=== PATIENT | female | born 1975 | race Caucasian/White ===

== ENCOUNTER 2017-03-03 19:54 | Emergency (ER) | payer OTHER ==
[~2017-03-03] VITALS: Ht 162.6 cm; Wt 76.6 kg
[~2017-03-03 19:54] MED LIST: CYAN100T PO; MULT-506 PO
[2017-03-03 19:58] VITALS: Ht 162.6 cm; Wt 76.6 kg
[2017-03-03] MEDS ORDERED: FERR1TAB13 PO (20:03)
--- NOTE | 2017-03-03 20:39 | DIAGNOSTIC IMAGING REPORT ---
LEFT KNEE 3 VIEWS CLINICAL HISTORY: L knee pain pain COMPARISON: None. DISCUSSION: The bones and joint spaces appear intact. There is no evidence of fracture, dislocation or bony disease. There is no evidence for soft tissue swelling. IMPRESSION: Negative study. Electronically signed by: Wilfrido Singer M.D. 03/03/2017 8:37 PM Dictated Date/Time: 03/03/2017 8:37 PM
[2017-03-03 21:12] VITALS: BP 155/89; PULSE 71; TEMP 36.7; O2SAT 100
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
[2017-09-03] MEDS ORDERED: CYAN100020 PO (22:52)
== END 2017-03-03 21:13 | disposition home or self-care (01) ==
LOC: C.EDB 19:55 → C.EDD 21:13
DX: S80.02XA Contusion of left knee, initial encounter (principal); W22.8XXA Striking against or struck by other objects, initial encounter; Z82.49 Family history of ischemic heart disease and other diseases of the circulatory system

== ENCOUNTER 2017-03-15 13:42 | Emergency (ER) | payer OTHER ==
[~2017-03-15] VITALS: Ht 162.6 cm; Wt 76.5 kg
[~2017-03-15 13:42] MED LIST changes: -CYAN100T PO; +FERR1TAB13 PO; -MULT-506 PO
[2017-03-15 13:47] VITALS: Ht 162.6 cm; Wt 76.5 kg
[2017-03-15] MEDS ORDERED: SODIUM CHLORIDE 0.9% 1000ML 1,000 ML IV STA (14:04)
[2017-03-15] MEDS ORDERED: LORAZEPAM 0.5 MG TAB SL STA (14:04)
--- NOTE | 2017-03-15 14:29 | DIAGNOSTIC IMAGING REPORT ---
CHEST ONE VIEW PORTABLE CLINICAL HISTORY: Chest Pain pain COMPARISON STUDY: No previous studies for comparison. FINDINGS: The bones soft tissues and hemidiaphragms are normal. The cardiomediastinal silhouette is normal. The lungs are clear. The pulmonary vasculature is normal. IMPRESSION: Negative chest. Electronically signed by: Wilfrido Singer M.D. 03/15/2017 2:27 PM Dictated Date/Time: 03/15/2017 2:27 PM
[2017-03-15 14:56] LABS: BASO % 1.4 %; BASO ABS # 0.12 K/uL (0-0.2); COMPLETE YES; EOS % 4.5 %; HEMATOCRIT 41.7 % (37-47); IG% 0.2 %; LYMPH % 29.4 %; MEAN CORPUSCULAR HEMOGLOBIN 30.1 pg (25-34); MEAN CORPUSCULAR HGB CONC 33.1 g/dl (32-36); MEAN PLATELET VOLUME 10.2 fL (7.4-10.4); MONO % 6.5 %; PLATELET COUNT 336 K/uL (130-400); RED BLOOD COUNT 4.58 M/uL (4.2-5.4); WHITE BLOOD COUNT 8.51 K/uL (4.8-10.8)
[2017-03-15 15:14] LABS: BLOOD UREA NITROGEN 16 mg/dl (7-18); BUN/CREATININE RATIO 25.1 (10-20); CALCIUM 8.1 mg/dl (8.5-10.1); CARBON DIOXIDE 28 mmol/L (21-32); CHLORIDE 110 mmol/L (98-107); CREATININE 0.63 mg/dl (0.60-1.20); GLUCOSE 95 mg/dl (70-99); POTASSIUM 4.5 mmol/L (3.5-5.1); SODIUM 144 mmol/L (136-145)
[2017-03-15 15:47] VITALS: BP 121/75; PULSE 62; TEMP 36.8; O2SAT 99
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
[2017-09-03] MEDS ORDERED: CYAN100020 PO (22:52)
== END 2017-03-15 16:15 | disposition home or self-care (01) ==
LOC: C.EDB 13:44 → C.EDA 16:15
DX: F41.9 Anxiety disorder, unspecified (principal); K82.9 Disease of gallbladder, unspecified; Z86.018 Personal history of other benign neoplasm; Z98.890 Other specified postprocedural states; Z79.899 Other long term (current) drug therapy; Z80.9 Family history of malignant neoplasm, unspecified; Z83.79 Family history of other diseases of the digestive system; Z82.49 Family history of ischemic heart disease and other diseases of the circulatory system; Z84.1 Family history of disorders of kidney and ureter

== ENCOUNTER 2017-04-30 01:00 | Emergency (ER) | payer OTHER ==
[~2017-04-30] VITALS: Ht 160 cm; Wt 75.1 kg
[2017-04-30 01:04] VITALS: TEMP 36.7; Ht 160 cm; Wt 75.1 kg
[2017-04-30] MEDS ORDERED: KETOROLAC TROMETHAMINE 60 MG/2 ML VIAL IM STA (01:39)
[2017-04-30] MEDS ORDERED: MULT-922 PO (02:00)
[2017-04-30] MEDS ORDERED: IBUP-103 PO (02:00)
[2017-04-30] MEDS ORDERED: MELO15TA10 PO (02:00)
[2017-04-30 03:20] VITALS: BP 147/82; PULSE 65; O2SAT 97
--- NOTE | 2017-04-30 06:36 | EMERGENCY ROOM VISIT NOTE ---
History First contact with patient: 01:20 Chief Complaint: KNEEPAIN Stated Complaint: LEFT KNEE PAIN History of Present Illness The patient is a 41 year old female who presents to the Emergency Room with complaints of left knee pain worsening over the past one day. The patient has a history of knee contusion about 2 months ago, and she has been following with orthopedics for this. She is undergoing physical therapy for this knee. She states that she generally has pain after physical therapy, but this feels worse than normal. She has difficulty with flexion and extension comfortably. She has not had significant improvement with [id number] analgesics. No fever or chills. No numbness. Her pain is primarily above and to the left lateral side of the patella. She rates her discomfort a 5/10 Review of Systems More than 10 systems were reviewed and otherwise negative with the exception of history of present illness. Past Medical/Surgical History Medical Problems: (1) Bronchitis (2) Sciatica Surgical Problems: (1) Gallbladder problem (2) Hx of tonsillectomy (3) Uterine fibroid Family History Cancer Gallbladder disease Heart disease Hypertension Kidney disease Lung disease Social History Smoking Status: Never Smoker Alcohol Use: other Drug Use: none Marital Status: single Occupation Status: employed Current/Historical Medications Scheduled Ferrous Sulfate ( Ferrous Sulfate), 325 MG PO DAILY Multiple Vitamins W/ Minerals (Multivitamin Adults), 1 TAB PO DAILY Scheduled PRN Ibuprofen Tab (Advil), 200-600 MG PO Q4H PRN for Pain Meloxicam (Mobic), 15 MG PO DAILY PRN for Pain Allergies Coded Allergies: No Known Allergies (Unverified , 04/30/17) Physical Exam Vital Signs Date Time Temp Pulse Resp B/P (MAP) Pulse Ox O2 Delivery O2 Flow Rate FiO2 04/30/17 03:20 65 147/82 97 04/30/17 01:04 36.7 74 20 137/95 98 Room Air Pain Rating (0-10): 2.0 Physical Exam VITALS: Vitals are noted on the nurse's note and reviewed by myself. Vital signs stable. GENERAL: Well-developed, well-nourished, white female, who is in no acute distress and resting comfortably. Patient is cooperative with the examination. HEAD: Normocephalic atraumatic. HEART: Regular rate and rhythm without murmurs gallops or rubs. LUNGS: Clear to auscultation bilaterally without wheezes, rales or rhonchi. No retractions or accessory muscle use. MUSCULOSKELETAL: No muscle atrophy, erythema, or edema noted. Left knee is diffusely tender on palpation. This significantly limits examination. No evidence of cellulitis. No palpable cords. NEURO: Patient was alert and oriented to person place and time. CN II through XII grossly intact. Medical Decision & Procedures Medications Administered Medications (Trade) Dose Ordered Sig/Clifton Route Start Time Stop Time Status Last Admin Dose Admin Ketorolac Tromethamine (Toradol Inj) 60 mg NOW STAT IM 04/30/17 01:39 04/30/17 01:40 DC 04/30/17 01:44 60 MG ED Course Physical exam and history were performed. Nursing notes and EMR were reviewed. Patient appears to have left knee pain for the past one day. The patient was given 60 mg IM Toradol. X-ray was obtained and reviewed by myself and my attending. X-ray does not appear to show acute fracture, dislocation, or bony of the malleoli when compared x-ray 2 months ago. Overall the patient's symptoms favored a sprain/strain or overuse episode. The patient was offered a splint, but she states that she has one at home. She will be given crutches and instructions to follow with her orthopedist for further care and management. The patient was pleased with this plan voiced understanding. She rated her discomfort a 2/10 at the time of departure. The chart was completed utilizing [email or web address] Speech Voice Recognition Software. Grammatical errors, random word insertions, pronoun errors, and incomplete sentences are an occasional consequence of this system due to software limitations, ambient noise, and hardware issues. Any formal questions or concerns about the content, text, or information contained within the body of this dictation should be directly addressed to the provider for clarification. . Medical Decision Differential diagnosis includes, but is not limited to: Sprain, strain, fracture , dislocation, subluxation, contusion, and others Impression Primary Impression: Left knee pain Departure Information Dispostion Home / Self-Care Condition GOOD Forms HOME CARE DOCUMENTATION FORM, IMPORTANT VISIT INFORMATION Patient Instructions My [facility] Additional Instructions You were seen and evaluated today on an emergency basis only. This is not a substitute for, or an effort to provide, complete comprehensive medical care. It is not possible to recognize and treat all injuries or illnesses in a single emergency department visit. For this reason it is recommended that you followup with your orthopedist for ongoing care and evaluation. Use your crutches and wear your splint for comfort Continue your at-home medications as prescribed You are welcome to return to the emergency department anytime with new, worsening, or concerning symptoms.
--- NOTE | 2017-04-30 06:47 | DIAGNOSTIC IMAGING REPORT ---
LEFT KNEE 3 VIEWS HISTORY: 41-year-old female presents with acute left knee pain status post recent injury. COMPARISON: Left knee radiographs 03/03/2017. TECHNIQUE: 3 views of the left knee FINDINGS: No acute fracture, dislocation or significant osteoarthritis. No large joint effusion or radiopaque foreign body. IMPRESSION: No acute fracture or dislocation. Electronically signed by: Lux rOellana 04/30/2017 6:45 AM Dictated Date/Time: 04/30/2017 6:43 AM
== END 2017-04-30 03:21 | disposition home or self-care (01) ==
LOC: C.EDB 01:01 → C.EDC 03:21
DX: M25.562 Pain in left knee (principal); Z80.9 Family history of malignant neoplasm, unspecified; Z82.49 Family history of ischemic heart disease and other diseases of the circulatory system; Z84.1 Family history of disorders of kidney and ureter; Z79.899 Other long term (current) drug therapy

== ENCOUNTER 2017-11-11 01:40 | Emergency (ER) | payer OTHER ==
[~2017-11-11] VITALS: Ht 162.6 cm; Wt 86.3 kg
[~2017-11-11 01:40] MED LIST changes: +CYAN100020 PO; +IBUP-103 PO; +MULT-922 PO
[2017-11-11 01:43] VITALS: Ht 162.6 cm; Wt 86.3 kg
[2017-11-11] MEDS ORDERED: KETOROLAC TROMETHAMINE 30 MG/ML VIAL IV STA (02:07)
[2017-11-11] MEDS ORDERED: SODIUM CHLORIDE 0.9% 1000ML 1,000 ML IV ONE (02:15)
[2017-11-11] MEDS ORDERED: ACETAMINOPHEN IV 1,000 MG in EMPTY BAG 0 ML IV ONE (02:15)
[2017-11-11] MEDS ORDERED: ACETAMINOPHEN 1000 MG/100 ML IV IV ONE (02:25)
[2017-11-11 02:31] LABS: BASO % 0.6 %; BASO ABS # 0.06 K/uL (0-0.2); EOS % 2.7 %; EOS ABS # 0.28 K/uL (0-0.5); HEMATOCRIT 37.2 % (37-47); HEMOGLOBIN 12.5 g/dL (12.0-16.0); IG# 0.03 K/uL (0.00-0.02); LYMPH % 26.9 %; LYMPH ABS # 2.81 K/uL (1.2-3.4); MEAN CELL VOLUME 89.4 fL (80-100); MEAN CORPUSCULAR HGB CONC 33.6 g/dl (32-36); MEAN PLATELET VOLUME 9.7 fL (7.4-10.4); MONO ABS # 0.73 K/uL (0.11-0.59); NEUT % 62.5 %; NEUT ABS # 6.53 K/uL (1.4-6.5); PLATELET COUNT 327 K/uL (130-400); RED CELL DISTRIBUTION WIDTH CV 13.4 % (11.5-14.5); RED CELL DISTRIBUTION WIDTH SD 43.4 fL (36.4-46.3); WHITE BLOOD COUNT 10.44 K/uL (4.8-10.8)
[2017-11-11 02:50] LABS: ALBUMIN 3.2 gm/dl (3.4-5.0); CALCIUM 8.7 mg/dl (8.5-10.1); CREATININE 0.64 mg/dl (0.60-1.20); POTASSIUM 3.7 mmol/L (3.5-5.1)
[2017-11-11 02:52] LABS: TOTAL PROTEIN 6.7 gm/dl (6.4-8.2)
[2017-11-11] MEDS ORDERED: SOAP SUDS ENEMA PR ONE (03:30)
[2017-11-11 04:42] VITALS: BP 112/73; PULSE 80; TEMP 36.7; O2SAT 98
--- NOTE | 2017-11-11 05:27 | EMERGENCY ROOM VISIT NOTE ---
History First contact with patient: 01:47 Chief Complaint: COUGH Stated Complaint: CHEST HURTS,COUGH X WK,LIGHT HEADED,SCAR TISSUE HU Nursing Triage Summary: cough and cold symptoms x 9 days. complains of pain in mid abdominal pain that radiates to her rlq. History of Present Illness The patient is a 42 year old female who presents to the Emergency Room with complaints of upper right-sided and left-sided abdominal pain that is worsening over the past several days. The patient is also complaining of cough and cold symptoms for the past 9 days. She states her abdominal discomfort has been chronic, and began in 2013 when she had her gallbladder removed. She believes that she has scar tissue in this area that is causing much of her discomfort. The patient has not had nausea or vomiting. No reported changes in using the bathroom. No fever or chills. She states that her cough has been persistent, and is improving. The patient is currently living in a homeless longterm at a local [facility]. She rates her overall discomfort a 5/10 and has not taken anything [id number] for her symptoms. Review of Systems More than 10 systems were reviewed and otherwise negative with the exception of history of present illness. Past Medical/Surgical History Medical Problems: (1) Bronchitis (2) Sciatica Surgical Problems: (1) Gallbladder problem (2) Hx of tonsillectomy (3) Uterine fibroid Family History Cancer Gallbladder disease Heart disease Hypertension Kidney disease Lung disease Social History Smoking Status: Never Smoker Alcohol Use: other Drug Use: none Marital Status: single Occupation Status: employed Current/Historical Medications No Active Prescriptions or Reported Meds Physical Exam Vital Signs Date Time Temp Pulse Resp B/P (MAP) Pulse Ox O2 Delivery O2 Flow Rate FiO2 11/11/17 04:42 36.7 80 20 112/73 98 Room Air 11/11/17 02:01 Room Air 11/11/17 01:43 37.0 96 20 131/83 98 Room Air Physical Exam VITALS: Vitals are noted on the nurse's note and reviewed by myself. Vital signs stable. GENERAL: Well-developed, well-nourished, white female, who is in no acute distress and resting comfortably. Patient is cooperative with the examination. NECK: Supple without nuchal rigidity. No lymphadenopathy. No thyromegaly. Cervical spine is nontender. HEART: Regular rate and rhythm without murmurs gallops or rubs. LUNGS: Clear to auscultation bilaterally without wheezes, rales or rhonchi. No retractions or accessory muscle use. ABDOMEN: Positive normal bowel sounds x 4. Soft, nontender, without masses or organomegaly. No guarding or rebound tenderness. MUSCULOSKELETAL: No muscle atrophy, erythema, or edema noted. Full range of motion without joint tenderness in all extremities. Medical Decision & Procedures Laboratory Results 11/11/17 02:23 Red Blood Count 4.16, Mean Corpuscular Volume 89.4, Mean Corpuscular Hemoglobin 30.0, Mean Corpuscular Hemoglobin Concent 33.6, Mean Platelet Volume 9.7, Neutrophils (%) (Auto) 62.5, Lymphocytes (%) (Auto) 26.9, Monocytes (%) (Auto) 7.0, Eosinophils (%) (Auto) 2.7, Basophils (%) (Auto) 0.6, Neutrophils # (Auto) 6.53, Lymphocytes # (Auto) 2.81, Monocytes # (Auto) 0.73, Eosinophils # (Auto) 0.28, Basophils # (Auto) 0.06 11/11/17 02:23 Test 11/11/17 02:23 White Blood Count 10.44 K/uL (4.8-10.8) Red Blood Count 4.16 M/uL (4.2-5.4) Hemoglobin 12.5 g/dL (12.0-16.0) Hematocrit 37.2 % (37-47) Mean Corpuscular Volume 89.4 fL (80-100) Mean Corpuscular Hemoglobin 30.0 pg (25-34) Mean Corpuscular Hemoglobin Concent 33.6 g/dl (32-36) Platelet Count 327 K/uL (130-400) Mean Platelet Volume 9.7 fL (7.4-10.4) Neutrophils (%) (Auto) 62.5 % Lymphocytes (%) (Auto) 26.9 % Monocytes (%) (Auto) 7.0 % Eosinophils (%) (Auto) 2.7 % Basophils (%) (Auto) 0.6 % Neutrophils # (Auto) 6.53 K/uL (1.4-6.5) Lymphocytes # (Auto) 2.81 K/uL (1.2-3.4) Monocytes # (Auto) 0.73 K/uL (0.11-0.59) Eosinophils # (Auto) 0.28 K/uL (0-0.5) Basophils # (Auto) 0.06 K/uL (0-0.2) RDW Standard Deviation 43.4 fL (36.4-46.3) RDW Coefficient of Variation 13.4 % (11.5-14.5) Immature Granulocyte % (Auto) 0.3 % Immature Granulocyte # (Auto) 0.03 K/uL (0.00-0.02) Anion Gap 3.0 mmol/L (3-11) Est Creatinine Clear Calc Drug Dose 124.3 ml/min Estimated GFR () 129.4 Estimated GFR (Non- 111.6 BUN/Creatinine Ratio 18.5 (10-20) Calcium Level 8.7 mg/dl (8.5-10.1) Total Bilirubin 0.1 mg/dl (0.2-1) Aspartate Amino Transf (AST/SGOT) 11 U/L (15-37) Alanine Aminotransferase (ALT/SGPT) 16 U/L (12-78) Alkaline Phosphatase 65 U/L (45-117) Total Protein 6.7 gm/dl (6.4-8.2) Albumin 3.2 gm/dl (3.4-5.0) Globulin 3.5 gm/dl (2.5-4.0) Albumin/Globulin Ratio 0.9 (0.9-2) Lipase 125 U/L (73-393) Medications Administered Medications (Trade) Dose Ordered Sig/Clifton Route Start Time Stop Time Status Last Admin Dose Admin Sodium Chloride 1,000 ml @ 999 mls/hr Q1H1M ONCE IV 11/11/17 02:15 11/11/17 03:15 DC 11/11/17 02:28 999 MLS/HR Ketorolac Tromethamine (Toradol Inj) 30 mg NOW STAT IV 11/11/17 02:07 11/11/17 02:11 DC 11/11/17 02:28 30 MG Acetaminophen 1000 mg/Empty Bag 100 ml @ 400 mls/hr NOW ONCE IV 11/11/17 02:15 11/11/17 02:29 DC 11/11/17 02:28 400 MLS/HR Miscellaneous (Soap Suds Enema) [address] 11/11/17 03:30 11/11/17 03:31 DC 11/11/17 03:36 1 ED Course Physical exam and history were performed. Nursing notes, EMR, and Medication List were personally reviewed. Patient appears to have reports of vague abdominal pain that has been worsening over the past few days. This is evidently chronic in nature for her, and she does have a history of cholecystectomy. IV access was established and labs were obtained. The patient was hydrated with normal saline and medicated as above. X-rays of the chest and abdomen were performed. The patient's blood work is as above and was reviewed. She does not have a significantly elevated white blood cell count, gross anemia, bandemia, or significant electrolyte imbalance. She has amylases are nondiagnostic. Her x- ray of the chest does not show an acute infiltrate, however there does appear to be significant stool burden in both the ascending and descending colon on plain films. I discussed options of care with the patient, as I suspect much of her abdominal discomfort is from stool. She did elect for an enema, and soapsuds enema was performed by staff. The patient had a moderate to large size movement after the enema, and the patient did report significant improvement of her abdominal discomfort. Overall the patient does appear well for discharge home. She was educated on conservative measures to help prevent further constipation. I do recommend that she follow with the surgeon if she feels that she has do recommend that she follow with her primary care physician for further care and management. She is otherwise went back to the ER with any new , worsening, or concerning symptoms. The chart was completed utilizing [employer] Speech Voice Recognition Software. Grammatical errors, random word insertions, pronoun errors, and incomplete sentences are an occasional consequence of this system due to software limitations, ambient noise, and hardware issues. Any formal questions or concerns about the content, text, or information contained within the body of this dictation should be directly addressed to the provider for clarification. . Medical Decision Differential diagnosis: Etiologies such as appendicitis, diverticulitis, PUD, biliary pathology, UTI, pancreatitis, obstruction, mesenteric ischemia, aortic pathology, infections, inflammatory bowel disease, renal colic, as well as others were entertained. Impression Primary Impression: Abdominal pain Additional Impression: Constipation Departure Information Dispostion Home / Self-Care Condition GOOD Prescriptions No Active Prescriptions or Reported Meds Forms HOME CARE DOCUMENTATION FORM, IMPORTANT VISIT INFORMATION Patient Instructions My [facility] Additional Instructions You were seen and evaluated today on an emergency basis only. This is not a substitute for, or an effort to provide, complete comprehensive medical care. It is not possible to recognize and treat all injuries or illnesses in a single emergency department visit. For this reason it is recommended that you followup with your primary care physician with any ongoing or persistent symptoms. Consider an [id number] stool softener like Colace. Drink plenty of fluids and remain well hydrated. You are welcome to return to the emergency department anytime with new, worsening, or concerning symptoms. Problem Qualifiers
--- NOTE | 2017-11-11 06:55 | DIAGNOSTIC IMAGING REPORT ---
PA CHEST RADIOGRAPH AND UPRIGHT AND SUPINE AP RADIOGRAPHS OF THE ABDOMEN CLINICAL HISTORY: Abdominal pain and cough. COMPARISON STUDY: Chest radiograph March 15, 2017. FINDINGS: Lung volumes are normal. No consolidation is identified. There is no pneumothorax or pleural effusion. Mild interstitial prominence is likely within normal limits. Cardiomediastinal silhouette is normal. There is no free air. There are cholecystectomy clips. A moderate amount of stool within the colon is noted. IMPRESSION: 1. No free air or evidence of bowel obstruction. 2. Moderate amount stool within the colon. 3. No acute cardiopulmonary findings. Electronically signed by: Erwin Aguilera M.D. 11/11/2017 6:54 AM Dictated Date/Time: 11/11/2017 6:52 AM
== END 2017-11-11 04:45 | disposition home or self-care (01) ==
LOC: C.EDB 01:41 → C.EDA 04:45
DX: R10.11 Right upper quadrant pain (principal); K59.00 Constipation, unspecified; Z90.49 Acquired absence of other specified parts of digestive tract; K82.9 Disease of gallbladder, unspecified; Z86.018 Personal history of other benign neoplasm; Z80.9 Family history of malignant neoplasm, unspecified; Z83.79 Family history of other diseases of the digestive system; Z82.49 Family history of ischemic heart disease and other diseases of the circulatory system; Z84.1 Family history of disorders of kidney and ureter

== ENCOUNTER 2018-01-16 00:06 | Emergency (ER) | payer OTHER ==
[~2018-01-16] VITALS: Ht 162.6 cm; Wt 80.0 kg
[2018-01-16 00:14] VITALS: TEMP 36.7; Ht 162.6 cm; Wt 80.0 kg
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
[2018-01-16 02:32] VITALS: BP 117/79
[2018-01-16 02:41] VITALS: PULSE 83; O2SAT 97
--- NOTE | 2018-01-16 06:41 | DIAGNOSTIC IMAGING REPORT ---
CHEST ONE VIEW PORTABLE HISTORY: 42 years-old Female chest pain acute atypical chest pain with anxiety COMPARISON: Acute abdominal series radiographs 11/11/2017 TECHNIQUE: Portable AP view of the chest FINDINGS: Cardiomediastinal and hilar silhouettes are within normal limits. There is no pneumothorax, pleural effusion, focal airspace consolidation or overt pulmonary edema. The bones of the chest appear grossly intact. IMPRESSION: No acute process. The above report was generated using voice recognition software. It may contain grammatical, syntax or spelling errors. Electronically signed by: Lux Orellana M.D. 01/16/2018 6:40 AM Dictated Date/Time: 01/16/2018 6:39 AM
== END 2018-01-16 02:58 | disposition home or self-care (01) ==
LOC: C.EDB 00:07 → C.EDA 02:58
DX: F41.9 Anxiety disorder, unspecified (principal); R00.2 Palpitations; Z83.79 Family history of other diseases of the digestive system; Z82.49 Family history of ischemic heart disease and other diseases of the circulatory system; Z84.1 Family history of disorders of kidney and ureter; Z83.6 Family history of other diseases of the respiratory system